=== PATIENT | female | born 1985 | race Caucasian/White ===

== ENCOUNTER 2018-01-07 16:51 | Emergency (ER) | payer MEDICAID ==
[~2018-01-07] VITALS: Ht 165.1 cm; Wt 52.2 kg
[2018-01-07 18:35] LABS: ANION GAP 11 mmol/L (5-15); BLOOD UREA NITROGEN 16 mg/dL (7-18); CALCIUM 9.2 MG/DL (8.5-10.1); CARBON DIOXIDE 29 MMOL/L (21-32); CHLORIDE 97 MMOL/L (98-107); POTASSIUM 3.5 MMOL/L (3.5-5.1); SODIUM 137 MMOL/L (136-145)
[2018-01-07 18:39] LABS: ALANINE AMINOTRANSFERASE 16 U/L (12-78); ALBUMIN 2.3 G/DL (3.4-5.0); ALBUMIN/GLOBULIN RATIO 0.5 (1.0-2.7); ALKALINE PHOSPHATASE 126 U/L (46-116); ASPARTATE AMINO TRANSFERASE 33 U/L (15-37); BILIRUBIN,TOTAL 0.3 MG/DL (0.2-1.0)
[2018-01-07 18:40] LABS: HEMATOCRIT 27.9 % (37.0-47.0); HEMOGLOBIN 9.4 G/DL (12.0-16.0); MEAN CORPUSCULAR VOLUME 86 FL (80-99); PLATELET COUNT 631 K/UL (150-450); RED BLOOD COUNT 3.23 M/UL (4.20-5.40); RED CELL DISTRIBUTION WIDTH 14.6 % (11.6-14.8); WHITE BLOOD COUNT 14.1 K/UL (4.8-10.8)
[2018-01-07 18:45] VITALS: BP 134/86
[2018-01-07 18:50] LABS: INR 1.1 (0.9-1.1)
[2018-01-07 19:15] VITALS: BP 138/90
--- NOTE | 2018-01-07 20:10 | Diagnostic Imaging Report ---
EXAM: XR Abdomen, 2 Views CLINICAL HISTORY: ABD PAIN TECHNIQUE: Frontal view of the abdomen/pelvis with upright view of the abdomen. COMPARISON: No relevant prior studies available. FINDINGS: Intraperitoneal space: No free air. Gastrointestinal tract: No acute or suspicious findings. No dilation. Bones/joints: No acute or suspicious findings. IMPRESSION: Normal abdominal x-rays.
[2018-01-07] MEDS ORDERED: Gastrograffin 30ml ORAL PRN (20:15)
[2018-01-07] MEDS ORDERED: Isovue-300 100ml vial INJ PRN (20:15)
[2018-01-07 20:57] LABS: APPEARANCE,URINE SLIGHTLY CLOUDY; BILIRUBIN, URINE NEGATIVE (NEGATIVE); COLOR,URINE AMBER; GLUCOSE, URINE (UA) NEGATIVE (NEGATIVE); KETONES,URINE NEGATIVE (NEGATIVE); LEUKOCYTE ESTERASE ,URINE 2+ (NEGATIVE); NITRITE,URINE NEGATIVE (NEGATIVE); PH,URINE 6.5 (4.5-8.0); PROTEIN,URINE 2+ (NEGATIVE); UROBILINOGEN,URINE 1 MG/DL (0.0-1.0)
[2018-01-07] MEDS ORDERED: NS 1000ml 1,600 ML IVLG ONE (21:45)
[2018-01-07] MEDS ORDERED: cefTRIAXone 1 GM in NS 55 ML IVPB ONE (21:45)
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
[2018-01-07 22:36] VITALS: BP 135/88
--- NOTE | 2018-01-07 22:55 | Diagnostic Imaging Report ---
EXAM: CT Abdomen and Pelvis With Intravenous Contrast CLINICAL HISTORY: ABD PAIN TECHNIQUE: Axial computed tomography images of the abdomen and pelvis with intravenous contrast. CTDI is 17 mGy and DLP is 415 mGy-cm. One or more of the following dose reduction techniques were used: automated exposure control, adjustment of the mA and/or kV according to patient size, use of iterative reconstruction technique. COMPARISON: No relevant prior studies available. FINDINGS: Lung bases are clear. Heart is not enlarged. Oral contrast material in a nondistended distal thoracic esophagus. Liver, gallbladder, spleen, pancreas, and right kidney are unremarkable. Right adrenal not well seen. Delayed left nephrogram. Hydronephrosis is present. Areas of hypoenhancement are present at the upper and lower poles. A large heterogeneous lesion with average density of approximately 60 Hounsfield units emanates from the left renal pelvis and extends down the left side of the retroperitoneum, measuring 13.5 x 22.3 x 11.6 cm. There is severe mass effect upon the normal structures in the left hemiabdomen. There is 3 cm anterior displacement of the abdominal aorta with minimal luminal narrowing. No bowel obstruction or wall thickening. Mild free fluid in the pelvis. No free air. No aortic dissection or aneurysm. No DVT is seen. No abdominal wall lesions. Paracaval, para-aortic, left iliac chain, left greater than right inguinal lymphadenopathy is present. No adnexal lesions. No lytic or blastic lesions. IMPRESSION: Large left retroperitoneal lesion could represent hematoma or neoplasm. Correlate with multiphase imaging. Obstructed left kidney. Widespread lymphadenopathy suggests a systemic neoplastic process. [employer] 01/07/18 22:59 Verify Receipt Verified receipt with [facility] in er for Charmaine Grossman MD on 01/07 22:59 (-07:00)
[2018-01-07] MEDS ORDERED: LORazepam Inj 2mg/ml 1ml IV ONE (23:30)
[2018-01-07] MEDS ORDERED: Morphine Sulfate 4mg/ml Inj IVP ONE (23:30)
[2018-01-08 00:35] VITALS: BP 135/78
[2018-01-08 03:57] VITALS: BP 128/81
[2018-01-08 03:58] VITALS: BP 128/81
== END 2018-01-08 04:02 | disposition short-term general hospital (02) ==
LOC: EMR 17:55 → UNDOADMIN 22:09 → 4W 22:09 → EDBEDREQ 22:42 → EMR 01-08 04:02
DX: R10.32 Left lower quadrant pain (principal); N30.00 Acute cystitis without hematuria; D50.9 Iron deficiency anemia, unspecified; F15.10 Other stimulant abuse, uncomplicated; E86.0 Dehydration; F17.200 Nicotine dependence, unspecified, uncomplicated; Z88.8 Allergy status to other drugs, medicaments and biological substances
CPT/HCPCS: 36415; 74018; 74177; 80053; 80307; 80329; 81003; 83605; 83690; 84702; 85007; 85025; 85610; 85730; 86850; 86900; 86901; 87086; 99285; J0696; J2270; Q9967